=== PATIENT | female | born 1980 | race African-American/Black ===

== ENCOUNTER 2023-05-26 01:41 | Emergency (ER) | payer OTHER ==
[~2023-05-26] VITALS: Ht 172.7 cm; Wt 86.4 kg
[2023-05-26 02:36] LABS: Alanine Aminotransferase 12 U/L (7-40); Albumin 4.2 g/dL (3.2-4.8); Alkaline Phosphatase 59 U/L (46-116); Anion Gap 8 (5-15); Aspartate Aminotransferase 16 U/L (13-40); BUN/Creatinine Ratio 8.6 (10.0-20.0); Bilirubin, Total 0.4 mg/dL (0.2-1.0); Blood Urea Nitrogen 7 mg/dL (9-23); Calcium 9.3 mg/dL (8.7-10.4); Carbon Dioxide 23 mmol/L (20-30); Chloride 106 mmol/L (98-107); Glucose 158 mg/dL (74-106); Lipase 32 U/L (12-53); Potassium 3.1 mmol/L (3.5-5.1); Sodium 137 mmol/L (136-145); Total Protein 7.6 g/dL (5.7-8.2)
[2023-05-26 02:42] LABS: Hematocrit 24.8 % (36.0-46.0); Hemoglobin 7.5 g/dL (12.2-16.2); Mean Corpuscular Hemoglobin 22.1 pg (28.0-32.0); Mean Corpuscular Hgb Conc. 30.3 g/dL (32.0-36.0); Red Cell Distribution Width 19.8 % (11.8-14.3); White Blood Cell 10.1 10^3/uL (4.4-10.8)
[2023-05-26 02:45] LABS: Band Neutrophils % (manual) 0; Basophils % (manual) 0 (0.0-2.0); Blast Cells 0; Metamyelocytes % 0; Myelocytes % 0; Promyelocytes % 0; Reactive Lymphocytes 0
[2023-05-26 03:12] LABS: Anisocytosis Slight; Eosinophils % (manual) 1 (0-7); Hypochromia Moderate; Lymphocytes % (manual) 12 (10.0-50.0); Monocytes % (manual) 4 (0-12); Platelet Estimate Adequate
[2023-05-26] MEDS: KETOROLAC TROMETH 30 MG/ML 1ML VIAL IV ONE (04:48)
[2023-05-26 06:06] VITALS: BP 114/75; TEMP 98.3
[2023-05-26 06:09] VITALS: PULSE 95; RESP 18; O2SAT 98
[2023-05-26 06:38] LABS: Urine Blood 2+ /uL (Negative); Urine Clarity HAZY (Clear); Urine Color Colorless (Yellow); Urine Protein, UAD Negative (Negative); Urine Specific Gravity 1.009 (1.001-1.035); Urine Urobilinogen Normal (Negative)
[2023-05-26] MEDS: SODIUM CHLORIDE 0.9% 1,000 ML IV ONE (06:51)
[2023-05-26] MEDS: POTASSIUM EFFERVESENT TAB 25 MEQ PO ONE (06:53)
[2023-05-26 07:06] VITALS: RESP 18; O2SAT 97
== END 2023-05-26 07:59 | disposition left against medical advice (07) ==
LOC: EDBD 01:41 → ER 01:41
DX: R10.13 Epigastric pain (principal); R11.0 Nausea
CPT/HCPCS: 36415; 74176; 80053; 81003; 83690; 85007; 85027; 86850; 86900; 86901; 93005; 96361; 96374; 99285; J1885; 86920

== ENCOUNTER 2023-10-11 07:06 | Inpatient (IN) | payer MEDICAID, OTHER ==
[2023-10-11] VITALS (12 sets, daily range): BP systolic 117–134; BP diastolic 64–85; PULSE 70–95; RESP 13–18; TEMP 97.9–98.8; O2SAT 97–100
[~2023-10-11] VITALS: Ht 168.9 cm; Wt 80.5 kg
[2023-10-11 08:25] LABS: Alanine Aminotransferase 14 U/L (7-40); Alkaline Phosphatase 62 U/L (46-116); Calcium 9.3 mg/dL (8.7-10.4); INR 1.08 (0.9-1.15); Partial Thromboplastin Time 21.7 SEC (24.5-34.5); Prothrombin Time 11.4 sec (9.3-11.8)
[2023-10-11 08:26] LABS: Albumin 4.3 g/dL (3.2-4.8); Anion Gap 7 (5-15); Aspartate Aminotransferase 12 U/L (13-40); BUN/Creatinine Ratio 10.8 (10.0-20.0); Bilirubin, Total 0.6 mg/dL (0.2-1.0); Blood Urea Nitrogen 8 mg/dL (9-23); Carbon Dioxide 23 mmol/L (20-30); Chloride 109 mmol/L (98-107); Glucose 97 mg/dL (74-106); Potassium 4.2 mmol/L (3.5-5.1); Sodium 139 mmol/L (136-145); Total Protein 7.7 g/dL (5.7-8.2)
[2023-10-11] MEDS: ACETAMINOPHEN 325 MG TAB PO ONE (08:53)
[2023-10-11 08:57] LABS: Hematocrit 21.6 % (36.0-46.0); Mean Corpuscular Hemoglobin 18.8 pg (28.0-32.0); Mean Corpuscular Hgb Conc. 29.8 g/dL (32.0-36.0); Mean Corpuscular Volume 63.1 fL (80.0-100.0); Red Blood Cells 3.42 10^6/uL (4.0-5.20)
[2023-10-11 08:58] LABS: Hemoglobin 6.4 g/dL (12.2-16.2); Red Cell Distribution Width 23.7 % (11.8-14.3)
[2023-10-11 08:59] LABS: Band Neutrophils % (manual) 0; Basophils % (manual) 0 (0.0-2.0); Blast Cells 0; Metamyelocytes % 0; Myelocytes % 0; Promyelocytes % 0; Reactive Lymphocytes 0
[2023-10-11 09:20] LABS: Eosinophils % (manual) 2 (0-7); Lymphocytes % (manual) 34 (10.0-50.0); Monocytes % (manual) 11 (0-12)
[2023-10-11 09:21] LABS: Anisocytosis Slight; Hypochromia Moderate
[2023-10-11 09:22] LABS: Ovalocytes FEW; Platelet Estimate Increased
[2023-10-11 10:13] LABS: % Iron Saturation 4.8 % (15-50)
[2023-10-11 10:42] LABS: Urine Bacteria FEW /hpf (None Seen); Urine Blood 3+ /uL (Negative); Urine Clarity Turbid (Clear); Urine Color Colorless (Yellow); Urine Mucus FEW (None Seen); Urine Protein, UAD Negative (Negative); Urine Specific Gravity 1.012 (1.001-1.035); Urine Urobilinogen Normal (Negative); Urine WBC 1 /hpf (0 - 5)
[2023-10-11] MEDS ORDERED: MORPHINE SULFATE INJ 2 MG/ml SYRG IV PRN ×2 (11:00)
[2023-10-11] MEDS ORDERED: DOCUSATE SOD 100 MG CAP PO PRN (11:00)
[2023-10-11] MEDS ORDERED: ONDANSETRON HCL 4 MG/2 ML VIAL IV PRN (11:00)
[2023-10-11] MEDS ORDERED: NITROGLYCERIN 0.4 MG SL TAB SL PRN (11:00)
[2023-10-11] MEDS: MORPHINE SULFATE INJ 2 MG/ml SYRG IV PRN (11:46)
[2023-10-11] MEDS: SODIUM CHLORIDE 0.9% 1,000 ML IV SCH (11:50)
[2023-10-11 16:02] LABS: Hematocrit 26.3 % (36.0-46.0); Hemoglobin 8.1 g/dL (12.2-16.2)
[2023-10-11] MEDS: HYDROcodone-ACET 5/325MG TAB PO PRN (16:16)
[2023-10-11] MEDS ORDERED: APIX5TAB PO (16:56)
[2023-10-12] VITALS (8 sets, daily range): BP systolic 104–124; BP diastolic 53–73; PULSE 83–99; RESP 16–18; TEMP 97.8–98.9; O2SAT 97–100
[2023-10-12 07:15] LABS: Basophils # (auto) 0 10 ^3/uL (0-0.2); Eosinophils # (auto) 0.1 10 ^3/uL (0-0.8); White Blood Cell 4.1 10^3/uL (4.4-10.8)
[2023-10-12 07:19] LABS: Basophils % (auto) 1.2 % (0.0-2.0); Eosinophils % (auto) 1.9 % (0.0-7.0); Hematocrit 26.2 % (36.0-46.0); Hemoglobin 8.2 g/dL (12.2-16.2); Lymphocytes % (auto) 23.8 % (10.0-50.0); Mean Corpuscular Hemoglobin 20.5 pg (28.0-32.0); Mean Corpuscular Hgb Conc. 31.1 g/dL (32.0-36.0); Monocytes # (auto) 0.6 10 ^3/uL (0-1.3); Monocytes % (auto) 14.1 % (0.0-12.0); Neutrophils # (auto) 2.4 10 ^3/uL (1.6-8.6); Red Blood Cells 3.97 10^6/uL (4.0-5.20)
[2023-10-12 07:32] LABS: Red Cell Distribution Width 25.8 % (11.8-14.3)
[2023-10-12 07:38] LABS: Alanine Aminotransferase 13 U/L (7-40); Alkaline Phosphatase 59 U/L (46-116); Anion Gap 6 (5-15); BUN/Creatinine Ratio 7.7 (10.0-20.0); Blood Urea Nitrogen 5 mg/dL (9-23); Calcium 9.1 mg/dL (8.7-10.4); Carbon Dioxide 24 mmol/L (20-30); Chloride 109 mmol/L (98-107); Glucose 88 mg/dL (74-106); Potassium 3.7 mmol/L (3.5-5.1); Sodium 139 mmol/L (136-145)
[2023-10-12 07:39] LABS: Aspartate Aminotransferase 10 U/L (13-40)
[2023-10-12 07:40] LABS: Bilirubin, Total 0.8 mg/dL (0.2-1.0); Total Protein 7.2 g/dL (5.7-8.2)
[2023-10-12] MEDS ORDERED: ALBUTEROL SULF 2.5 MG/0.5ML(0.5%) NEB SOLN NEB PRN (14:30)
[2023-10-12] MEDS: ACETAMINOPHEN 325 MG TAB PO PRN (18:08)
[2023-10-13] VITALS (10 sets, daily range): BP systolic 103–123; BP diastolic 55–85; PULSE 72–87; RESP 16–18; TEMP 97.4–98.9; O2SAT 97–100
[2023-10-13 06:58] LABS: Alanine Aminotransferase 11 U/L (7-40); Alkaline Phosphatase 54 U/L (46-116); Anion Gap 7 (5-15); BUN/Creatinine Ratio 7.9 (10.0-20.0); Blood Urea Nitrogen 6 mg/dL (9-23); Calcium 8.9 mg/dL (8.7-10.4); Carbon Dioxide 22 mmol/L (20-30); Chloride 110 mmol/L (98-107); Glucose 99 mg/dL (74-106); Potassium 3.7 mmol/L (3.5-5.1); Sodium 139 mmol/L (136-145)
[2023-10-13 06:59] LABS: Albumin 3.7 g/dL (3.2-4.8); Aspartate Aminotransferase 9 U/L (13-40); Bilirubin, Total 0.6 mg/dL (0.2-1.0); Total Protein 6.8 g/dL (5.7-8.2)
[2023-10-13 07:04] LABS: Hemoglobin 8.1 g/dL (12.2-16.2)
[2023-10-13 07:11] LABS: Mean Corpuscular Hemoglobin 20.8 pg (28.0-32.0); Mean Corpuscular Volume 67.2 fL (80.0-100.0); Red Blood Cells 3.87 10^6/uL (4.0-5.20); White Blood Cell 3.8 10^3/uL (4.4-10.8)
[2023-10-13 07:15] LABS: Red Cell Distribution Width 25.8 % (11.8-14.3)
[2023-10-13 07:18] LABS: Band Neutrophils % (manual) 0; Basophils % (manual) 0 (0.0-2.0); Blast Cells 0; Metamyelocytes % 0; Myelocytes % 0; Promyelocytes % 0
[2023-10-13 10:59] LABS: Amphetamine Screen, Urine Neg (NEGATIVE); Barbiturate Scree,Urine Neg (NEGATIVE); Benzodiazephine Screen, Urine Neg (NEGATIVE); Cannabinoid Screen, Urine Neg (NEGATIVE); Cocaine Screen, Urine Neg (NEGATIVE); Opiate Scree,Urine Neg (NEGATIVE); Phencyclidine Screen, Urine Neg (NEGATIVE)
[2023-10-13 11:08] LABS: Eosinophils % (manual) 1 (0-7); Lymphocytes % (manual) 31 (10.0-50.0); Monocytes % (manual) 5 (0-12); Reactive Lymphocytes 3
[2023-10-13 11:09] LABS: Anisocytosis Moderate; Hypochromia Marked; Platelet Estimate Adequate
[2023-10-13] MEDS: SUCRALFATE 1 GM/10 ML ORAL SUSP PO SCH (13:18)
[2023-10-13] MEDS: IRON SUCROSE COMPLEX 100 ML IV SCH (13:18)
[2023-10-13] MEDS: IBUPROFEN 400 MG TAB PO ONE (13:19)
[2023-10-13] MEDS: PANTOPRAZOLE 40 MG TAB PO ONE (13:20)
[2023-10-13] MEDS: ERGOCALCIFEROL 50,000 UNIT(1.25MG) CAP PO SCH (14:45)
[2023-10-13] MEDS ORDERED: CYANOCOBALAMIN (B-12) 1000 MCG/1 ML VIAL SUBCUT ONE (14:45)
[2023-10-13] MEDS: PANTOPRAZOLE 40 MG TAB PO SCH (17:00)
[2023-10-13] MEDS: CYANOCOBALAMIN (B-12) 1000 MCG/1 ML VIAL IM ONE (17:23)
[2023-10-14] VITALS (7 sets, daily range): BP systolic 113–126; BP diastolic 72–80; PULSE 77–89; RESP 16–18; TEMP 37.1; O2SAT 98–100
[2023-10-14] MEDS ORDERED: MELATONIN 5 MG TAB PO ONE (00:15)
[2023-10-14 07:05] LABS: Basophils # (auto) 0 10 ^3/uL (0-0.2); Eosinophils # (auto) 0.1 10 ^3/uL (0-0.8); Neutrophils # (auto) 1.8 10 ^3/uL (1.6-8.6)
[2023-10-14 07:07] LABS: Eosinophils % (auto) 1.6 % (0.0-7.0); Hematocrit 25.5 % (36.0-46.0); Lymphocytes # (auto) 2.4 10 ^3/uL (0.4-5.4); Mean Corpuscular Hemoglobin 20.7 pg (28.0-32.0); Mean Corpuscular Hgb Conc. 31.4 g/dL (32.0-36.0); Monocytes # (auto) 0.3 10 ^3/uL (0-1.3); Monocytes % (auto) 6.6 % (0.0-12.0); Neutrophils % (auto) 38.8 % (37.0-80.0); Nucleated Red Blood Cells % 0.2 %; Red Blood Cells 3.86 10^6/uL (4.0-5.20); White Blood Cell 4.7 10^3/uL (4.4-10.8)
[2023-10-14 07:14] LABS: Red Cell Distribution Width 26.1 % (11.8-14.3)
[2023-10-14] MEDS ORDERED: OMNIPAQUE 12mg/ml 500ml ORAL SOLUTION PO ONE ×2 (07:27→08:28)
[2023-10-14 07:43] LABS: Alanine Aminotransferase 14 U/L (7-40); Albumin 3.9 g/dL (3.2-4.8); Alkaline Phosphatase 57 U/L (46-116); Anion Gap 7 (5-15); Aspartate Aminotransferase 10 U/L (13-40); BUN/Creatinine Ratio 10.4 (10.0-20.0); Bilirubin, Total 0.5 mg/dL (0.2-1.0); Blood Urea Nitrogen 7 mg/dL (9-23); Calcium 9.1 mg/dL (8.7-10.4); Carbon Dioxide 24 mmol/L (20-30); Chloride 109 mmol/L (98-107); Glucose 92 mg/dL (74-106); Potassium 3.7 mmol/L (3.5-5.1); Sodium 140 mmol/L (136-145); Total Protein 7.2 g/dL (5.7-8.2)
[2023-10-14] MEDS ORDERED: IOHEXOL 300 MG/ML 100ML BOTTLE IJ ONE (08:28)
[2023-10-14 09:35] LABS: Platelet Estimate Increased
[2023-10-14 09:36] LABS: Anisocytosis Moderate; Hypochromia Marked
[2023-10-14] MEDS: CYANOCOBALAMIN 500 MCG TAB PO SCH (13:57)
[2023-10-14] MEDS ORDERED: ERGO1CAP23 PO (15:53)
[2023-10-14] MEDS ORDERED: FER325T PO (15:53)
[2023-10-14] MEDS ORDERED: PANT40T PO (15:53)
[2023-10-14] MEDS ORDERED: CYAN500T3 PO (15:53)
[2023-10-14] MEDS ORDERED: SUCR1SUS26 PO (15:53)
[2023-10-14] MEDS ORDERED: ACET-1882 PO (15:53)
== END 2023-10-14 18:00 | disposition home or self-care (01) | DRG 663 ==
LOC: ER 07:06 → OVERFLOW 10:51 → CENTRAL 16:06
PROVIDERS: ADMIT Internal Medicine; ATTEND Internal Medicine
PROC: 30233N1 Transfusion of Nonautologous Red Blood Cells into Peripheral Vein, Percutaneous Approach (ICD-10-PCS; principal; 2023-10-11)
DX: D62 Acute posthemorrhagic anemia (principal); D25.9 Leiomyoma of uterus, unspecified; D75.839 Thrombocytosis, unspecified; G89.29 Other chronic pain; N92.0 Excessive and frequent menstruation with regular cycle; R13.10 Dysphagia, unspecified; K21.9 Gastro-esophageal reflux disease without esophagitis; E55.9 Vitamin D deficiency, unspecified; M94.0 Chondrocostal junction syndrome [Tietze]; N88.8 Other specified noninflammatory disorders of cervix uteri; Z82.49 Family history of ischemic heart disease and other diseases of the circulatory system; Z83.3 Family history of diabetes mellitus; Z88.1 Allergy status to other antibiotic agents; Z98.891 History of uterine scar from previous surgery
CPT/HCPCS: 36415; 74177; 76830; 76856; 80053; 80307; 81001; 82270; 82306; 82607; 82728; 82746; 83036; 83540; 83550; 83605; 84443; 84484; 85007; 85014; 85018; 85025; 85027; 85610; 85730; 86850; 86900; 86901; 86920; 93005; 96374; 99291; G0378; J1756

== ENCOUNTER 2024-08-31 16:26 | Inpatient (IN) | payer OTHER ==
[~2024-08-31] VITALS: Ht 170.2 cm; Wt 83.1 kg
[~2024-08-31 16:26] MED LIST: ACET-1882 PO; CYAN500T3 PO; ERGO1CAP23 PO; FER325T PO; PANT40T PO; SUCR1SUS26 PO
[2024-08-31] MEDS: KETOROLAC TROMETH 30 MG/ML 1ML VIAL IV ONE (16:45)
[2024-08-31 17:01] LABS: Chloride 106 mmol/L (98-107); Potassium 3.7 mmol/L (3.5-5.1); Sodium 140 mmol/L (136-145)
[2024-08-31 17:02] LABS: Anion Gap 11 (5-15); Carbon Dioxide 23 mmol/L (20-31)
[2024-08-31 17:03] LABS: Basophils # (auto) 0.1 10 ^3/uL (0-0.2); Eosinophils # (auto) 0.1 10 ^3/uL (0-0.8); Hemoglobin 7.8 g/dL (12.2-16.2); Nucleated Red Blood Cells % 0.1 %
[2024-08-31 17:05] LABS: Basophils % (auto) 0.6 % (0.0-2.0); Hematocrit 25.8 % (36.0-46.0); Lymphocytes # (auto) 4.6 10 ^3/uL (0.4-5.4); Lymphocytes % (auto) 50.9 % (10.0-50.0); Mean Corpuscular Hemoglobin 17.9 pg (28.0-32.0); Mean Corpuscular Hgb Conc. 30.2 g/dL (32.0-36.0); Mean Corpuscular Volume 59.4 fL (80.0-100.0); Monocytes # (auto) 0.4 10 ^3/uL (0-1.3); Monocytes % (auto) 4.1 % (0.0-12.0); Neutrophils # (auto) 3.9 10 ^3/uL (1.6-8.6); Neutrophils % (auto) 43.4 % (37.0-80.0); Platelet Count (auto) 546 10^3/uL (140-450); Red Blood Cells 4.34 10^6/uL (4.0-5.20); Red Cell Distribution Width 20.6 % (11.8-14.3); White Blood Cell 9.1 10^3/uL (4.4-10.8)
[2024-08-31 17:07] LABS: BUN/Creatinine Ratio 8.5 (10.0-20.0); Blood Urea Nitrogen 7 mg/dL (9-23); Glucose 96 mg/dL (74-106)
[2024-08-31 17:10] LABS: Urine Bacteria FEW /hpf (None Seen); Urine Blood 1+ /uL (Negative); Urine Clarity Turbid (Clear); Urine Color Dark-Yellow (Yellow); Urine Protein, UAD 1+ (Negative); Urine Specific Gravity 1.008 (1.001-1.035); Urine Squamous Epithelial Cell FEW /hpf (<5); Urine Urobilinogen Normal (Negative); Urine WBC 590 /HPF (0-5); Urine WBC Clumps PRESENT /hpf (None Seen)
--- NOTE | 2024-08-31 17:45 | ED.PDOC ---
History of Present Illness HPI Comments 43-year-old female with a history of sickle cell anemia presents with 2 days of dysuria polyuria right flank pain and full body pain. Patient denies any fever chills. Patient reports he has feels similar to a sickle cell crisis start her. Chief Complaint: Urinary Time Seen by MD: 16:30 Primary Care Provider: UNKNOWN Allergies: Coded Allergies: Azithromycin (Verified Allergy, Intermediate, VOMITING, 05/26/23) Home Meds Active Scripts Ferrous Sulfate (Ferrous Sulfate) 325 Mg Tab, 325 MG PO DAILY for 30 Days, #30 TAB Prov:MOISE LOPEZ [facility] 10/14/23 Sucralfate (CARAFATE SUSP) 1 Gm/10 Ml Ss, 1 GM PO QID@0600,1130,1700,2200 for 30 Days, #120 ML Prov:MOISE LOPEZ [facility] 10/14/23 Pantoprazole Sodium Sesquihydr (Pantoprazole Sodium) 40 Mg Tab, 40 MG PO BID@0600,1700 for 30 Days, #30 TAB Prov:MOISE LOPEZ [facility] 10/14/23 Ergocalciferol (VITAMIN D 78267 UNIT) 50,000 [place], [address] UNIT PO Q7D for 30 Days, #10 CAP Prov:MOISE LOPEZ [facility] 10/14/23 Cyanocobalamin (Gnp Vitamin B12) 500 Mcg Tab, 1000 MCG PO DAILY for 30 Days, #60 TAB Prov:MOISE LOPEZ [facility] 10/14/23 Acetaminophen (Acetaminophen) 325 Mg Tab, 650 MG PO Q4HP PRN for 10 Days, #100 TAB Prov:MOISE LOPEZ [facility] 10/14/23 Mode of Arrival: Ambulatory Past Medical History 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 History: Denies all DIRECTOR SEMICONDUCTOR Hx Family History Family History: Reviewed,noncontributory to illness, Family hx of DM, Family hx of HTN Social History Smoker: Non-Smoker Alcohol: Denies ETOH Use Drugs: Denies Drug Use Lives In: Home All Other Systems: Reviewed and Negative Physical Exam General Appearance: Mild Distress HEENT: Other (Pale sclera) Neck: Normal Inspection Respiratory: No Respiratory Distress Cardiovascular: Tachycardia Breast Exam: Deferred Gastrointestinal: Non Tender Genitalia: Deferred Pelvic: Deferred Rectal: Deferred Extremities: No pedal edema Neurologic: No Motor Deficits Cerebellar Function: NOT DONE Reflexes: NOT DONE Skin: Other (Pale-appearing) Lymphatic: NOT DONE Was a procedure done? Was a procedure done?: No Differential Dx Considerations may include: Urinary tract infection, pyelonephritis, dehydration, sickle cell crisis X-Ray, Labs, Meds, VS Vital Signs Date Time Temp Pulse Resp B/P (MAP) Pulse Ox O2 Delivery O2 Flow Rate FiO2 08/31/24 16:31 98.3 116 20 120/74 (89) 98 98.3 Lab Test 08/31/24 16:40 08/31/24 16:36 Range/Units White Blood Count 9.1 4.4-10.8 10^3/uL Red Blood Count 4.34 4.0-5.20 10^6/uL Hemoglobin 7.8 L 12.2-16.2 g/dL Hematocrit 25.8 L 36.0-46.0 % Mean Corpuscular Volume 59.4 L 80.0-100.0 fL Mean Corpuscular Hemoglobin 17.9 L 28.0-32.0 pg Mean Corpuscular Hemoglobin Concent 30.2 L 32.0-36.0 g/dL Red Cell Distribution Width 20.6 H 11.8-14.3 % Platelet Count 546 H 140-450 10^3/uL Mean Platelet Volume 8.5 6.9-10.8 fL Neutrophils (%) (Auto) 43.4 37.0-80.0 % Lymphocytes (%) (Auto) 50.9 H 10.0-50.0 % Monocytes (%) (Auto) 4.1 0.0-12.0 % Eosinophils (%) (Auto) 1.0 0.0-7.0 % Basophils (%) (Auto) 0.6 0.0-2.0 % Neutrophils # (Auto) 3.9 1.6-8.6 10 ^3/uL Lymphocytes # (Auto) 4.6 0.4-5.4 10 ^3/uL Monocytes # (Auto) 0.4 0-1.3 10 ^3/uL Eosinophils # (Auto) 0.1 0-0.8 10 ^3/uL Basophils # (Auto) 0.1 0-0.2 10 ^3/uL Nucleated Red Blood Cells 0.1 % Sodium Level 140 136-145 mmol/L Potassium Level 3.7 3.5-5.1 mmol/L Chloride Level 106 98-107 mmol/L Carbon Dioxide Level 23 20-31 mmol/L Anion Gap 11 5-15 Blood Urea Nitrogen 7 L 9-23 mg/dL Creatinine 0.82 0.550-1.02 mg/dL Glomerular Filtration Rate Calc 92 >90 mL/min BUN/Creatinine Ratio 8.5 L 10.0-20.0 Serum Glucose 96 74-106 mg/dL Calcium Level 10.0 8.7-10.4 mg/dL Urine Color Dark-yellow Yellow Urine Clarity Turbid H Clear Urine pH 7.0 5.0-9.0 Urine Specific [place] 1.008 1.001-1.035 Urine Protein 1+ H Negative Urine Ketones Negative Negative Urine Blood 1+ H Negative /uL Urine Nitrite 1+ H Negative Urine Bilirubin Negative Negative Urine Urobilinogen Normal Negative mg/dL Urine Leukocyte Esterase 3+ Negative /uL Urine RBC 8 0 - 4 /hpf Urine WBC Clumps Present None Seen /hpf Urine Microscopic WBC 590 H 0-5 /HPF Urine Squamous Epithelial Cells Few <5 /hpf Urine Bacteria Few H None Seen /hpf Urine Glucose Normal Normal mg/dL Urine Test Negative Negative Time of 1ST Reevaluation: 17:43 Reevaluation 1ST: Unchanged Patient Education/Counseling: Diagnosis, Treatment Family Education/Counseling: No Family Present Departure 1 Departure Time of Disposition: 17:44 (Patient with a sickle cell crisis likely secondary to a urinary tract infection. We will transfuse patient for her symptomatic anemia and empirically cover patient with antibiotics for the infection. Patient is not septic. We will give patient fluids as well for the sickle cell crisis.) Impression: Primary Impression: Symptomatic anemia Additional Impressions: Sickle cell crisis Acute cystitis Qualified Codes: N30.01 - Acute cystitis with hematuria Disposition: ADMITTED INPATIENT Admit to: Med Surg Condition: Serious Critical Care Note Critical Care Time?: Yes Critical care comment: Intractable pain Authorized and Performed by: Fredis Pacheco MD Total critical care time: Approximately 37 minutes Due to a high probability of clinically significant, life threatening deterioration, the patient required my highest level of preparedness to intervene emergently and I personally spent this critical care time directly and personally managing the patient. This critical care time included obtaining a history; examining the patient; pulse oximetry; ordering and review of studies; arranging urgent treatment with development of a management plan; evaluation of patient's response to treatment; frequent reassessment; and, discussions with other providers. This critical care time was performed to assess and manage the high probability of imminent, life-threatening deterioration that could result in multi-organ failure. It was exclusive of separately billable procedures and treating other patients and teaching time. Please see my other sections and the rest of the note for further information on patient assessment and treatment. Stability Stability form required: No FREDIS PACHECO MD Aug 31, 2024 17:45
[2024-08-31] MEDS: SODIUM CHLORIDE 0.9% 1,000 ML IV ONE ×2 (18:22)
[2024-08-31] MEDS: cefTRIAXone 1GM/50ML D5W 50 ML IV ONE (18:24)
[2024-08-31] MEDS: MORPHINE SULFATE 4 MG/ML SYR/VIAL IV ONE ×2 (18:24→21:14)
[2024-08-31] MEDS: ONDANSETRON HCL 4 MG/2 ML VIAL IV ONE ×2 (18:24→21:14)
[2024-08-31] MEDS: PANTOPRAZOLE 40 MG TAB PO ONE (22:10)
[2024-08-31] MEDS: SODIUM CHLORIDE 0.9% 1,000 ML IV SCH (22:17)
[2024-08-31 22:57] LABS: White Blood Cell 9.6 10^3/uL (4.4-10.8)
[2024-08-31 22:59] LABS: Mean Corpuscular Hemoglobin 18.2 pg (28.0-32.0); Mean Corpuscular Volume 60.5 fL (80.0-100.0); Platelet Count (auto) 428 10^3/uL (140-450); Red Blood Cells 3.79 10^6/uL (4.0-5.20)
[2024-08-31 23:03] LABS: Red Cell Distribution Width 21.3 % (11.8-14.3)
[2024-08-31 23:04] LABS: Hemoglobin 6.9 g/dL (12.2-16.2)
[2024-08-31 23:05] LABS: Band Neutrophils % (manual) 0; Basophils % (manual) 0 (0.0-2.0); Blast Cells 0; Metamyelocytes % 0; Myelocytes % 0; Promyelocytes % 0; Reactive Lymphocytes 0
--- NOTE | 2024-08-31 23:24 | DVH ---
Exam: CT CT AB PEL WITH IV CON ONLY History: r/o pyelonephritis COMPARISON: CT CT ABD PELVIS W CON-ORAL IV on DOS: 10/14/23 Technique: Multidetector spiral CT of the abdomen and pelvis was performed from lung bases to pubic s ymphysis. Intravenous contrast was administered during this examination. Portal venous imaging was o btained. Axial, coronal and sagittal multiplanar reformats were performed by the technologist on a [employer] workstation. Radiation Dose : 1. Abdomen/Pelvis: CTDIvol 21.57mGy, DLP 1110.89 mGy*cm. CONTRAST: Type of contrast: Omnipaque 300 Contrast injected: 100 ml Findings: Lung Bases: No acute or significant lung base finding. Normal heart size. No pleural or pericardial effusion. Liver: The liver is normal in size. Few scattered subcentimeter benign-appearing hepatic cysts within the right lobe measure up to 6 mm in diameter. No focal lesions. Normal hepatic vascular enhancement . Gallbladder and Biliary Tree: Unremarkable Spleen: Unremarkable Pancreas: The pancreas is normal in appearance without focal lesions or abnormal enhancement. Adrenal Glands: Unremarkable Kidneys: No hydronephrosis. Bladder: Unremarkable Bowel: The stomach is grossly normal in appearance. Small bowel and colon are normal in caliber and d istribution. The appendix is normal. Ascites: Small volume likely physiologic pelvic free fluid. Lymphadenopathy: No mesenteric, retroperitoneal or periportal lymphadenopathy. Abdominal Wall and Mesentery: Unremarkable. Vasculature: The visualized abdominal aorta is normal in size and caliber. Abdominal and pelvic vess els demonstrate normal enhancement. Pelvic Organs: Probable corpus luteum cyst within the right adnexa measuring 2.4 cm. Otherwise, unrem arkable. Musculoskeletal: No aggressive focal bony lesions, acute fractures or dislocation. IMPRESSION: 1. No acute abdominal or pelvic finding. 2. Likely physiologic pelvic cul-de-sac free fluid and probable right adnexal corpus luteum cyst. Radiation optimization: All CT scans at this facility use at least one of these dose optimization lore hniques: automated exposure control mA and/or kV adjustment per patient size (includes targeted exam s where dose is matched to clinical indication) or iterative reconstruction.
[2024-09-01] VITALS (8 sets, daily range): BP systolic 97–127; BP diastolic 52–70; PULSE 83–95; RESP 14–18; TEMP 97.8–98.2; O2SAT 90–100
[2024-09-01 02:07] LABS: Eosinophils % (manual) 1 (0-7); Lymphocytes % (manual) 21 (10.0-50.0); Monocytes % (manual) 5 (0-12)
[2024-09-01 02:08] LABS: Anisocytosis Slight; Hypochromia Moderate; Platelet Estimate Adequate
--- NOTE | 2024-09-01 04:20 | DVHHPRES ---
History of Present Illness Resident Creating Document: VI HYATT RESIDENT History of Present Illness Patient is a 43-year-old female with a past medical history of sickle cell anemia presented to the ED with a chief complaint of suprapubic pain. Patient reported to have worsening suprapubic pain since the last 2 days but denied any fever or chills, nausea or vomiting, no other abdominal pain. Patient does not report any history of ureteric or kidney calculi. Patient reports she has not had a blood transfusion in over a month and is following up with the pet store merchandiser. Patient also reports having full body aches the last 2 days reports that usually when she has a sickle cell crisis he started to have pain like this. Past medical history: Sickle cell anemia, uterus leiomyoma Past surgical history: Bilateral tubal ligation Social history: Patient denies smoking, alcohol, drug use Home medications: No home medication Review of Systems Review of Systems Patient seen and examined at the bedside Reports of [id number] suprapubic pain with tenderness No flank pain Denies nausea, vomiting, abdominal pain, diarrhea or constipation Allergies: Coded Allergies: Azithromycin (Verified Allergy, Intermediate, VOMITING, 05/26/23) Medications Current Medications Medications Dose Ordered Sig/Chitra Route Start Time Stop Time Status Last Admin Dose Admin Ceftriaxone Sodium 50 ml @ 100 mls/hr DAILY@09 IV 09/01/24 18:00 Morphine Sulfate 2 mg Q4HPRN PRN IV 08/31/24 22:15 Pantoprazole Sodium 40 mg DAILY@0600 PO 09/01/24 06:00 Sodium Chloride 1,000 ml @ 125 mls/hr Q8H IV 08/31/24 22:00 08/31/24 22:17 125 MLS/HR Exam Vital Signs Vital Signs Date Time Temp Pulse Resp B/P (MAP) Pulse Ox O2 Delivery O2 Flow Rate FiO2 08/31/24 21:14 82 20 134/90 08/31/24 20:42 97.8 98 97.8 08/31/24 18:07 Room Air* 0 21 Exam Gen - mild conjunctival pallor, no icterus, no cyanosis, no clubbing, no LAD, no edema . Skin - Patients skin is warm and dry. HEENT - normocephalic, atraumatic, dry mucous membranes. Neck - full ROM, no LAD, no JVD Pulmonary - B/L equal breath sounds, no crackles, no wheezing, no stridor. cardiovascular - regular S1,S2 heard, no added sounds, no murmurs heard. . GI - soft abdomen with [id number]-ok-[id number] tenderness to palpation in the suprapubic area. no hepatospleenomegaly. Bowel sounds normoactive Neurological - Patient is A/O X 3. Bilateral upper extremity strength 5/5, bilateral lower extremity strength 5/5, no facial droop, normal speech, no tremor, no sensory deficiets. Labs/Xrays Labs Test 08/31/24 22:20 08/31/24 16:40 08/31/24 16:36 Range/Units White Blood Count 9.6 4.4-10.8 10^3/uL Red Blood Count 3.79 L 4.0-5.20 10^6/uL Hemoglobin 6.9 *L 12.2-16.2 g/dL Hematocrit 23.0 #L 36.0-46.0 % Mean Corpuscular Volume 60.5 L 80.0-100.0 fL Mean Corpuscular Hemoglobin 18.2 L 28.0-32.0 pg Mean Corpuscular Hemoglobin Concent 30.0 L 32.0-36.0 g/dL Red Cell Distribution Width 21.3 H 11.8-14.3 % Platelet Count 428 140-450 10^3/uL Mean Platelet Volume 8.3 6.9-10.8 fL Neutrophils (%) (Auto) 37.0-80.0 % Lymphocytes (%) (Auto) 10.0-50.0 % Monocytes (%) (Auto) 0.0-12.0 % Basophils (%) (Auto) 0.0-2.0 % Neutrophils # (Auto) 1.6-8.6 10 ^3/uL Lymphocytes # (Auto) 0.4-5.4 10 ^3/uL Monocytes # (Auto) 0-1.3 10 ^3/uL Differential Total Cells Counted 100.0 100 Neutrophils % (Manual) 73 37.0-80.0 Band Neutrophils % (Manual) 0 Lymphocytes % (Manual) 21 10.0-50.0 Monocytes % (Manual) 5 0-12 Eosinophils % (Manual) 1 0-7 Basophils % (Manual) 0 0.0-2.0 Metamyelocytes % (manual) 0 Myelocytes % (Manual) 0 Promyelocytes % (Manual) 0 Blast Cells % (Manual) 0 Reactive Lymphocytes 0 Platelet Estimate Adequate Hypochromasia (manual) Moderate Anisocytosis (manual) Slight Microcytosis Moderate Lactic Acid Level 1.0 0.4-2.0 mmol/L Eosinophils (%) (Auto) 1.0 0.0-7.0 % Eosinophils # (Auto) 0.1 0-0.8 10 ^3/uL Basophils # (Auto) 0.1 0-0.2 10 ^3/uL Nucleated Red Blood Cells 0.1 % Sodium Level 140 136-145 mmol/L Potassium Level 3.7 3.5-5.1 mmol/L Chloride Level 106 98-107 mmol/L Carbon Dioxide Level 23 20-31 mmol/L Anion Gap 11 5-15 Blood Urea Nitrogen 7 L 9-23 mg/dL Creatinine 0.82 0.550-1.02 mg/dL Glomerular Filtration Rate Calc 92 >90 mL/min BUN/Creatinine Ratio 8.5 L 10.0-20.0 Serum Glucose 96 74-106 mg/dL Calcium Level 10.0 8.7-10.4 mg/dL Urine Color Dark-yellow Yellow Urine Clarity Turbid H Clear Urine pH 7.0 5.0-9.0 Urine Specific [place] 1.008 1.001-1.035 Urine Protein 1+ H Negative Urine Ketones Negative Negative Urine Blood 1+ H Negative /uL Urine Nitrite 1+ H Negative Urine Bilirubin Negative Negative Urine Urobilinogen Normal Negative mg/dL Urine Leukocyte Esterase 3+ Negative /uL Urine RBC 8 0 - 4 /hpf Urine WBC Clumps Present None Seen /hpf Urine Microscopic WBC 590 H 0-5 /HPF Urine Squamous Epithelial Cells Few <5 /hpf Urine Bacteria Few H None Seen /hpf Urine Glucose Normal Normal mg/dL Urine Test Negative Negative Assessment/Plan Assessment/Plan Intractable suprapubic pain UTI likely acute cystitis - UA shows elevated leukocyte esterase, WBC clumps - urine bacterial culture pending - CT with IV contrast shows no evidence of hydronephrosis, pyelonephritis - on ceftriaxone H/O uterine leiomyoma Probable Corpus luteum cyst - scheduled for surgery on September 09 at [facility] in [place] - probable corpus luteum cyst seen on CT measuring about 2.4 cm in the right adnexa Severe Microcytic hypochromic anemia Sickle cell anemia, not in crisis - 1 unit of blood transfusion - IV morphine p.r.n. - IV fluids - iron and ferritin pending PUD prophylaxis: Protonix DVT prophylaxis: Not started because of low hemoglobin Goals of care discussed with the patient for over 23 minutes. Full code Time spent: 39 minutes Plan discussed with Dr. Otto Plan discussed with: Patient My Orders Orders - VI HYATT Procedure Category Date Status Time Admit ADMIT 08/31/24 Transmitted 21:55 Notify Md Of Changes RICHARD 08/31/24 In Process From Base 21:55 Urine Bacterial SUSANNA 08/31/24 Logged Culture 21:55 Ceftriaxone 1gm/50ml PHA 09/01/24 In Process D5w (Rocephin) 18:00 Complete Blood Count LAB 09/01/24 Logged 04:00 Comprehensive LAB 09/01/24 Logged Metabolic Panel 04:00 Ferritin LAB 09/01/24 Logged 04:00 Iron Panel LAB 09/01/24 Logged 04:00 Pantoprazole Tablet PHA 09/01/24 In Process (Protonix Tablet) 06:00 Sodium Chloride 0.9% PHA 08/31/24 In Process 22:00 Ct Ab Pel With Iv Con CT 08/31/24 Resulted Only 21:55 Morphine Sulfate PHA 08/31/24 In Process Injection 22:15 Packedcell-Noactive BBK 09/01/24 Logged Bleeding 03:39 Stool Occult Blood LAB 09/01/24 Logged 03:39 Date of Service: Aug 31, 2024 Billing Provider: JANNETH OTTO MD Common Visit Codes: [id number] INP/OBS CARE (HIGH) Secondary Visit Codes: [id number] CARE PLAN 30 MINUTES VI HYATT RESIDENT Sep 01, 2024 04:20
[2024-09-01] MEDS ORDERED: IOHEXOL 300 MG/ML 100ML BOTTLE IJ ONE (05:40)
[2024-09-01] MEDS: PANTOPRAZOLE 40 MG TAB PO SCH (06:03)
--- NOTE | 2024-09-01 09:41 | DVH ---
INDICATION: uterine fibroid TECHNIQUE: Multiple real-time grayscale transabdominal sonographic images along with color and duplex Doppler of the uterus and ovaries were obtained. COMPARISON: US PELVIC on DOS: 10/12/23 FINDINGS: The uterus measures 4 x 10 x 7 cm. The endometrial stripe measures 1.1cm. 6 cm fibroid. The right ovary measures 4 x 4 x 3 cm. Left ovary not seen. Interval increase in size of 6 cm fibroid. IMPRESSION: 1. Interval increase in size of 6 cm fibroid. MRI with IV contrast suggested.
[2024-09-01] MEDS ORDERED: HYDROcodone-ACET 5/325MG TAB PO PRN (09:45)
[2024-09-01 09:53] LABS: Hematocrit 28.2 % (36.0-46.0); Hemoglobin 8.7 g/dL (12.2-16.2); Mean Corpuscular Volume 64.5 fL (80.0-100.0); Platelet Count (auto) 386 10^3/uL (140-450); Red Blood Cells 4.37 10^6/uL (4.0-5.20); White Blood Cell 9.9 10^3/uL (4.4-10.8)
[2024-09-01 10:03] LABS: Red Cell Distribution Width 23.7 % (11.8-14.3)
[2024-09-01 10:04] LABS: Band Neutrophils % (manual) 0; Basophils % (manual) 0 (0.0-2.0); Blast Cells 0; Metamyelocytes % 0; Myelocytes % 0; Promyelocytes % 0; Reactive Lymphocytes 0
[2024-09-01 10:10] LABS: % Iron Saturation 64.9 % (15-50)
[2024-09-01 10:11] LABS: Alanine Aminotransferase 10 U/L (7-40); Albumin 4.4 g/dL (3.2-4.8); Alkaline Phosphatase 69 U/L (46-116); Anion Gap 9 (5-15); BUN/Creatinine Ratio 7.8 (10.0-20.0); Calcium 9.7 mg/dL (8.7-10.4); Carbon Dioxide 24 mmol/L (20-31); Glucose 87 mg/dL (74-106); Sodium 141 mmol/L (136-145); Total Protein 7.9 g/dL (5.7-8.2)
[2024-09-01] MEDS: MORPHINE SULFATE 4 MG/ML SYR/VIAL IV PRN (10:16)
[2024-09-01 10:18] LABS: Aspartate Aminotransferase 9 U/L (13-40); Bilirubin, Total 1.9 mg/dL (0.2-1.0); Blood Urea Nitrogen 5 mg/dL (9-23); Chloride 108 mmol/L (98-107)
[2024-09-01] MEDS: SODIUM CHLORIDE 0.9% 1,000 ML IV ONE (10:20)
--- NOTE | 2024-09-01 10:21 | DVH ---
CHEST RADIOGRAPH Indication: Dyspna Technique: Single frontal view of the chest was obtained Comparison: None FINDINGS: Lines and Tubes: None Lungs: Left basilar opacity obscuring the diaphragm partially. Right lung is clear. Pleura: No effusion. No pneumothorax. Cardiomediastinal contours: Unremarkable Bones: No acute osseous abnormality. IMPRESSION: 1. Left basilar opacity obscuring the diaphragm which may reflect atelectasis or pneumonia.
[2024-09-01 12:00] LABS: Eosinophils % (manual) 2 (0-7); Hypochromia Marked; Lymphocytes % (manual) 14 (10.0-50.0); Monocytes % (manual) 5 (0-12); Platelet Estimate Adequate
[2024-09-01 12:01] LABS: Anisocytosis Slight
--- NOTE | 2024-09-01 15:44 | DVHPNRES ---
Progress Note Date Seen: Sep 01, 2024 Resident Creating Document: GARRISON GOMEZ RESIDENT Has the PT tested + for MRSA If YES, has PT been informed?: No Medical Necessity Reason Pt with a Central, PICC or Fol: No Subjective Review of Systems Patient is a 43-year-old female with a past medical history of sickle cell anemia presented to the ED with a chief complaint of suprapubic pain. Patient reported to have worsening suprapubic pain since the last 2 days but denied any fever or chills, nausea or vomiting, no other abdominal pain. Patient does not report any history of ureteric or kidney calculi. Patient reports she has not had a blood transfusion in over a month and is following up with the ticket printer and tagger. Patient also reports having full body aches the last 2 days reports that usually when she has a sickle cell crisis he started to have pain like this. Past medical history: Sickle cell anemia, uterus leiomyoma Past surgical history: Bilateral tubal ligation Social history: Patient denies smoking, alcohol, drug use Home medications: No home medication : hb 6.9, 1 rbc given, LDH normal limits, xray left basilar opacity obscuring the diaphragm which may reflect atelectasis or pneumonia, patient states generalized pain Objective vital signs Vital Sign Date Time Temp Pulse Resp B/P (MAP) Pulse Ox O2 Delivery O2 Flow Rate FiO2 09/01/24 14:40 83 16 110/65 09/01/24 13:00 98.2 100 98.2 09/01/24 07:03 Room Air* 0 21 Total Intake and Output 08/31/24 08/31/24 09/01/24 15:00 23:00 07:00 Intake Total 50 ml Balance 50 ml medications Current Medications Medications Dose Ordered Sig/Chitra Route Start Time Stop Time Status Last Admin Dose Admin Ceftriaxone Sodium 50 ml @ 100 mls/hr DAILY@09 IV 09/01/24 18:00 Morphine Sulfate 2 mg Q4HPRN PRN IV 08/31/24 22:15 09/01/24 14:40 2 MG Pantoprazole Sodium 40 mg DAILY@0600 PO 09/01/24 06:00 09/01/24 06:03 40 MG Sodium Chloride 1,000 ml @ 125 mls/hr Q8H IV 08/31/24 22:00 09/01/24 14:00 125 MLS/HR Acetaminophen/ Hydrocodone Bitart 1 tab Q8HPRN PRN PO 09/01/24 09:45 Examination Gen - mild conjunctival pallor, no icterus, no cyanosis, no clubbing, no LAD, no edema . Skin - Patients skin is warm and dry. HEENT - normocephalic, atraumatic, dry mucous membranes. Neck - full ROM, no LAD, no JVD Pulmonary - B/L equal breath sounds, no crackles, no wheezing, no stridor. cardiovascular - regular S1,S2 heard, no added sounds, no murmurs heard. . GI - soft abdomen with cmev-iq-yfrjimgy tenderness to palpation in the suprapubic area. no hepatospleenomegaly. Bowel sounds normoactive Neurological - Patient is A/O X 3. Bilateral upper extremity strength 5/5, bilateral lower extremity strength 5/5, no facial droop, normal speech, no tremor, no sensory deficiets. laboratory and microbiology Laboratory Tests 09/01/24 11:01 09/01/24 09:23 Test 09/01/24 09:23 Range/Units Serum Glucose 87 74-106 mg/dL Problem List/Assessment/Plan Problem List/Assessment/Plan Severe Microcytic hypochromic anemia Sickle cell anemia, Pain crisis? Left side atelectasia - 1 unit of blood transfusion - IV morphine p.r.n., norco - IV fluids - iron high and ferritin low - LDH neg Less likely to have acute chest syndrome: continue spirometry Intractable suprapubic pain UTI likely acute cystitis - UA shows elevated leukocyte esterase, WBC clumps - urine bacterial culture pending - CT with IV contrast shows no evidence of hydronephrosis, pyelonephritis - on ceftriaxone H/O uterine leiomyoma Probable Corpus luteum cyst - scheduled for surgery on September 09 at [facility] in [place] - probable corpus luteum cyst seen on CT measuring about 2.4 cm in the right adnexa PUD prophylaxis: Protonix DVT prophylaxis: Not started because of low hemoglobin Goals of care discussed with the patient for over 23 minutes. Full code Time spent: 39 minutes Plan discussed with Dr. Adrian Plan discussed with: Patient, Other (rn) My Orders My Orders Orders - GARRISON GOMEZ RESIDENT Procedure Category Date Status Time Hydrocodone-Acet PHA 09/01/24 In Process 5/325mg Tab ([place] 09:45 Chest Xray 1 View XY 09/01/24 Resulted 09:47 Regular Diet DIET 09/01/24 Transmitted Dinner Date of Service: Sep 01, 2024 Billing Provider: ADDI ADRIAN MD Common Visit Codes: [id number] INP/OBS CARE(HIGH) GARRISON GOMEZ RESIDENT Sep 01, 2024 15:44 ADDI ADRIAN MD Sep 02, 2024 11:54
[2024-09-01] MEDS ORDERED: cefTRIAXone 1GM/50ML D5W 50 ML IV SCH (18:00)
[2024-09-02] MEDS ORDERED: LEVO750T40 PO (06:25)
--- NOTE | 2024-09-02 06:25 | DVHDSRES ---
Discharge Summary Date of Admission Resident Creating Document: GARRISON GOMEZ RESIDENT Aug 31, 2024 at 21:55 Labs/Diagnostic Data: Laboratory Results Test 09/01/24 11:01 09/01/24 09:23 08/31/24 22:20 08/31/24 16:40 Hemoglobin 8.4 g/dL (12.2-16.2) White Blood Count 9.9 10^3/uL (4.4-10.8) Red Blood Count 4.37 10^6/uL (4.0-5.20) Hematocrit 28.2 % (36.0-46.0) Mean Corpuscular Volume 64.5 fL (80.0-100.0) Mean Corpuscular Hemoglobin 20.0 pg (28.0-32.0) Mean Corpuscular Hemoglobin Concent 31.0 g/dL (32.0-36.0) Red Cell Distribution Width 23.7 % (11.8-14.3) Platelet Count 386 10^3/uL (140-450) Mean Platelet Volume 7.6 fL (6.9-10.8) Neutrophils (%) (Auto) % (37.0-80.0) Lymphocytes (%) (Auto) % (10.0-50.0) Monocytes (%) (Auto) % (0.0-12.0) Basophils (%) (Auto) % (0.0-2.0) Neutrophils # (Auto) 10 ^3/uL (1.6-8.6) Lymphocytes # (Auto) 10 ^3/uL (0.4-5.4) Monocytes # (Auto) 10 ^3/uL (0-1.3) Differential Total Cells Counted 100.0 (100) Neutrophils % (Manual) 79 (37.0-80.0) Band Neutrophils % (Manual) 0 Lymphocytes % (Manual) 14 (10.0-50.0) Monocytes % (Manual) 5 (0-12) Eosinophils % (Manual) 2 (0-7) Basophils % (Manual) 0 (0.0-2.0) Metamyelocytes % (manual) 0 Myelocytes % (Manual) 0 Promyelocytes % (Manual) 0 Blast Cells % (Manual) 0 Reactive Lymphocytes 0 Platelet Estimate Adequate Hypochromasia (manual) Marked Anisocytosis (manual) Slight Microcytosis Marked Sodium Level 141 mmol/L (136-145) Potassium Level 4.0 mmol/L (3.5-5.1) Chloride Level 108 mmol/L (98-107) Carbon Dioxide Level 24 mmol/L (20-31) Anion Gap 9 (5-15) Blood Urea Nitrogen 5 mg/dL (9-23) Creatinine 0.64 mg/dL (0.550-1.02) Glomerular Filtration Rate Calc 113 mL/min (>90) BUN/Creatinine Ratio 7.8 (10.0-20.0) Serum Glucose 87 mg/dL (74-106) Calcium Level 9.7 mg/dL (8.7-10.4) Iron Level 226 ug/dL (50-170) Total Iron Binding Capacity 348 ug/dL (250-425) Percent Iron Saturation 64.9 % (15-50) Ferritin 3.1 ng/mL (10-291) Total Bilirubin 1.9 mg/dL (0.2-1.0) Aspartate Amino Transferase (AST) 9 U/L (13-40) Alanine Aminotransferase (ALT) 10 U/L (7-40) Alkaline Phosphatase 69 U/L (46-116) Lactate Dehydrogenase 149 U/L (120-246) Total Protein 7.9 g/dL (5.7-8.2) Albumin 4.4 g/dL (3.2-4.8) Lactic Acid Level 1.0 mmol/L (0.4-2.0) Eosinophils (%) (Auto) 1.0 % (0.0-7.0) Eosinophils # (Auto) 0.1 10 ^3/uL (0-0.8) Basophils # (Auto) 0.1 10 ^3/uL (0-0.2) Nucleated Red Blood Cells 0.1 % Test 08/31/24 16:36 Urine Color Dark-yellow (Yellow) Urine Clarity Turbid (Clear) Urine pH 7.0 (5.0-9.0) Urine Specific [place] 1.008 (1.001-1.035) Urine Protein 1+ (Negative) Urine Ketones Negative (Negative) Urine Blood 1+ /uL (Negative) Urine Nitrite 1+ (Negative) Urine Bilirubin Negative (Negative) Urine Urobilinogen Normal mg/dL (Negative) Urine Leukocyte Esterase 3+ /uL (Negative) Urine RBC 8 /hpf (0 - 4) Urine WBC Clumps Present /hpf (None Seen) Urine Microscopic WBC 590 /HPF (0-5) Urine Squamous Epithelial Cells Few /hpf (<5) Urine Bacteria Few /hpf (None Seen) Urine Glucose Normal mg/dL (Normal) Urine Test Negative (Negative) Other Laboratory Tests 09/01/24 11:01 09/01/24 09:23 Discharge Statement: "Patient was advised to return to the ER or call 911 if any headaches, dizziness, shortness of breath, chest pain, abdominal pain, bleeding, fevers, or worsening of medical condition. Patient was counseled about treatment plan, medications, possible side effects, patientverbalized understanding. All questions were answered to the best of my ability. This discharge took greater then 30 minutes in planning, reviewing documentation, counseling the patient, and discussing with other team members." ASSESSMENT ASSESSMENT Assessment GARRISON GOMEZ RESIDENT Sep 02, 2024 06:25
== END 2024-09-01 17:45 | disposition left against medical advice (07) | DRG 463 ==
LOC: ER 16:32 → OVERFLOW 21:55
PROVIDERS: ADMIT Student in an Organized Health Care Education/Training Program; ATTEND Student in an Organized Health Care Education/Training Program
PROC: 30233N1 Transfusion of Nonautologous Red Blood Cells into Peripheral Vein, Percutaneous Approach (ICD-10-PCS; principal; 2024-09-01)
DX: N30.01 Acute cystitis with hematuria (principal); D57.00 Hb-SS disease with crisis, unspecified; J98.11 Atelectasis; Z53.29 Procedure and treatment not carried out because of patient's decision for other reasons; Z88.1 Allergy status to other antibiotic agents; Z79.899 Other long term (current) drug therapy; D50.9 Iron deficiency anemia, unspecified; N83.11 Corpus luteum cyst of right ovary
CPT/HCPCS: 36415; 71045; 74177; 76856; 80048; 80053; 81001; 81025; 82728; 83540; 83550; 83605; 83615; 85007; 85018; 85025; 85027; 86850; 86900; 86901; 86920; 87086; 96365; 96375; 99291; G0378; J2405